=== PATIENT | male | born 1930 | race Caucasian/White ===

== ENCOUNTER 2022-06-27 10:04 | Emergency (ER) | payer OTHER ==
--- NOTE | 2022-06-27 10:12 | ED ---
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 He did strike the back of his head against a counter. He denies any neck pain. He was demonstrating loss of consciousness for approximately 15 seconds per paramedics. Evidence of dysrhythmia on vehicle monitor technician per paramedics. Patient became awake alert oriented 4 and denies any focal deficits. He states some like this happen in the past he had a oblique cardiac workup which apparently was negative including stress test. Last tetanus shot was 4 years ago. Currently the patient has no complaints other than he does have a scalp laceration and some localized tenderness to the occiput. Per paramedics patient had what appeared to be a short run of PVCs with serial capture this resolved shortly and the patient went back to a normal sinus rhythm. MD Complaint: loss of consciousness - Related Data Home Medications Medication Instructions Recorded Confirmed Accupril Unknown Dose 1 tab PO HS 06/27/22 06/27/22 Aspirin EC [Ecotrin Low Dose] 81 mg PO DAILY 06/27/22 06/27/22 Cholecalciferol [Vitamin D3 (25 25 mcg PO DAILY 06/27/22 06/27/22 Mcg = 1000 Iu)] Crestor Unknown Dose 1 tab PO DAILY 06/27/22 06/27/22 Cyanocobalamin (Vitamin B-12) 1,000 mcg PO DAILY 06/27/22 06/27/22 [Vitamin B-12] Glipizide Unknown Dose 1 tab PO BID 06/27/22 06/27/22 Invokana Unknown Dose 1 tab PO DAILY 06/27/22 06/27/22 Ozempic Unknown Dose 1 dose SQ FR 06/27/22 06/27/22 Allergies Allergy/AdvReac Type Severity Reaction Status Date / Time No Known Allergies Allergy Verified 06/27/22 11:31 Review of Systems ROS Statement: Those systems with pertinent positive or pertinent negative responses have been documented in the HPI. ROS Other: All systems not noted in ROS Statement are negative. General Exam - General Exam Comments Initial Comments: This is a well-developed well-nourished awake alert oriented 4 male [place] Coma Scale of 15 General appearance: alert, in no apparent distress Head exam: Present: normocephalic, normal inspection, other (Scalp laceration noted to the occipital region no step-off or crepitation) Eye exam: Present: normal appearance, PERRL, EOMI. Absent: scleral icterus, conjunctival injection, periorbital swelling ENT exam: Present: normal exam, mucous membranes moist Neck exam: Present: normal inspection, other (Cervical collar in place no overt tenderness palpation). Absent: tenderness, meningismus, lymphadenopathy Respiratory exam: Present: normal lung sounds bilaterally. Absent: respiratory distress, wheezes, rales, rhonchi, stridor Cardiovascular Exam: Present: regular rate, normal rhythm, normal heart sounds. Absent: systolic murmur, diastolic murmur, rubs, gallop, clicks GI/Abdominal exam: Present: soft, normal bowel sounds. Absent: distended, tenderness, guarding, rebound, rigid Extremities exam: Present: normal inspection, full ROM, normal capillary refill. Absent: tenderness, pedal edema, joint swelling, calf tenderness Back exam: Present: normal inspection Neurological exam: Present: alert, oriented X3, CN II-XII intact Psychiatric exam: Present: normal affect, normal mood Skin exam: Present: warm, dry, intact, normal color. Absent: rash Course Vital Signs 06/27/22 10:07 Temperature 97.7 F Pulse Rate 106 H Respiratory 16 Rate Blood Pressure 151/92 O2 Sat by Pulse 96 Oximetry - Reevaluation(s) Reevaluation #1: 06/27/22 13:55 I did reevaluate patient several occasions no further episodes. Patient daughter is present. Did explain the procedure for evaluation to her. EKG Findings - EKG Results: EKG: interpreted by ERMD, sinus rhythm (Sinus tachycardia rate 103. Interval 185 QRS duration 141 QT/QTC 379/439> block pattern) Procedures - Laceration Laceration #1 Consent Obtained: verbal consent Site: scalp Description: flap Depth: simple, single layer Anesthetic Used: lidocaine 1% Amount (mls): 5 Pre-repair: wound explored, deep structures intact Size of Sutures: other (A total 13 surgical ramos used to approximate the edges to the 10 cm long reverse L-shaped laceration a dressing was applied afterwards) Patient Tolerated Procedure: well Medical Decision Making - Medical Decision Making I did a long discussion with the patient family regarding the findings I did recommend admission to this facility the patient is from [place] and does not want to be admitted here. The patient will be discharged with copies of the proceedings from this emergency department as well as the EMS run I did recommend he follow-up with emergency department in [place] where he is going. We did discuss return parameters. Patient is wanting to except responsibility. He's had no further episodes while in emergency department. A cardiac event is of concern. CT was negative for evidence of pulmonary emboli. - Lab Data Result diagrams: 06/27/22 10:25 06/27/22 10:25 Lab Results 06/27/22 06/27/22 06/27/22 Range/Units 10:25 10:25 10:25 WBC 8.3 (3.8-10.6) k/uL RBC 4.59 (4.30-5.90) m/uL Hgb 14.0 (13.0-17.5) gm/dL Hct 43.2 (39.0-53.0) % MCV 94.0 (80.0-100.0) fL MCH 30.4 (25.0-35.0) pg MCHC 32.3 (31.0-37.0) g/dL RDW 12.2 (11.5-15.5) % Plt Count 249 (150-450) k/uL MPV 7.2 Neutrophils % 68 % Lymphocytes % 18 % Monocytes % 7 % Eosinophils % 3 % Basophils % 1 % Neutrophils # 5.7 (1.3-7.7) k/uL Lymphocytes # 1.5 (1.0-4.8) k/uL Monocytes # 0.6 (0-1.0) k/uL Eosinophils # 0.2 (0-0.7) k/uL Basophils # 0.1 (0-0.2) k/uL PT 10.8 (9.0-12.0) sec INR 1.0 (<1.2) APTT 23.9 (22.0-30.0) sec D-Dimer 2.93 H (<0.60) mg/L FEU Sodium 138 (137-145) mmol/L Potassium 4.0 (3.5-5.1) mmol/L Chloride 106 (98-107) mmol/L Carbon Dioxide 19 L (22-30) mmol/L Anion Gap 13 mmol/L BUN 27 H (9-20) mg/dL Creatinine 1.02 (0.66-1.25) mg/dL Est GFR (CKD-EPI)AfAm 75 (>60 ml/min/1.73 sqM) Est GFR (CKD-EPI)NonAf 65 (>60 ml/min/1.73 sqM) Glucose 168 H (74-99) mg/dL Calcium 8.8 (8.4-10.2) mg/dL Magnesium 1.8 (1.6-2.3) mg/dL Total Bilirubin 0.4 (0.2-1.3) mg/dL AST 30 (17-59) U/L ALT 25 (4-49) U/L Alkaline Phosphatase 98 (38-126) U/L Troponin I (0.000-0.034) ng/mL Total Protein 6.0 L (6.3-8.2) g/dL Albumin 3.7 (3.5-5.0) g/dL 06/27/22 Range/Units 10:25 WBC (3.8-10.6) k/uL RBC (4.30-5.90) m/uL Hgb (13.0-17.5) gm/dL Hct (39.0-53.0) % MCV (80.0-100.0) fL MCH (25.0-35.0) pg MCHC (31.0-37.0) g/dL RDW (11.5-15.5) % Plt Count (150-450) k/uL MPV Neutrophils % % Lymphocytes % % Monocytes % % Eosinophils % % Basophils % % Neutrophils # (1.3-7.7) k/uL Lymphocytes # (1.0-4.8) k/uL Monocytes # (0-1.0) k/uL Eosinophils # (0-0.7) k/uL Basophils # (0-0.2) k/uL PT (9.0-12.0) sec INR (<1.2) APTT (22.0-30.0) sec D-Dimer (<0.60) mg/L FEU Sodium (137-145) mmol/L Potassium (3.5-5.1) mmol/L Chloride (98-107) mmol/L Carbon Dioxide (22-30) mmol/L Anion Gap mmol/L BUN (9-20) mg/dL Creatinine (0.66-1.25) mg/dL Est GFR (CKD-EPI)AfAm (>60 ml/min/1.73 sqM) Est GFR (CKD-EPI)NonAf (>60 ml/min/1.73 sqM) Glucose (74-99) mg/dL Calcium (8.4-10.2) mg/dL Magnesium (1.6-2.3) mg/dL Total Bilirubin (0.2-1.3) mg/dL AST (17-59) U/L ALT (4-49) U/L Alkaline Phosphatase (38-126) U/L Troponin I <0.012 (0.000-0.034) ng/mL Total Protein (6.3-8.2) g/dL Albumin (3.5-5.0) g/dL - Radiology Data Radiology results: report reviewed (CT reviewed no evidence of fractures or cranial problems. Chest x-ray no acute findings seen.), image reviewed Critical Care Time Critical Care Time: Yes Total Critical Care Time: 39 Critical Care Time: Critical care time includes initial presentation with history physical labs x- rays discussed with paramedics upon arrival was low reevaluation the patient discussed with the patient family this is not included the laceration repair ti me. Documentation of the above Disposition Clinical Impression: Syncope, Cardiac dysrhythmia, unspecified, Occipital scalp laceration Disposition: Left Against Medical Advice Condition: Stable Instructions (If sedation given, give patient instructions): Syncope (ED), Laceration (ED), Head Laceration (ED), Staple Care (ED) Is patient prescribed a controlled substance at d/c from ED?: No Referrals: None,Stated [Primary Care Provider] - 1-2 days Decision Date: 06/27/22 Decision Time: 14:00
[2022-06-27 10:14] VITALS: BP 151/92; PULSE 106; RESP 16; TEMP 97.7
[2022-06-27 10:34] LABS: Basophils # (A) 0.1 k/uL (0-0.2); Basophils % (A) 1 %; Eosinophils # (A) 0.2 k/uL (0-0.7); Eosinophils % (A) 3 %; HCT 43.2 % (39.0-53.0); Lymphocytes # (A) 1.5 k/uL (1.0-4.8); Lymphocytes % (A) 18 %; MCH 30.4 pg (25.0-35.0); MCHC 32.3 g/dL (31.0-37.0); Mean Platelet Volume 7.2; Monocytes # (A) 0.6 k/uL (0-1.0); Monocytes % (A) 7 %; Neutrophils # (A) 5.7 k/uL (1.3-7.7); Neutrophils % (A) 68 %; Platelet Count 249 k/uL (150-450); RBC 4.59 m/uL (4.30-5.90); RDW 12.2 % (11.5-15.5); WBC 8.3 k/uL (3.8-10.6)
[2022-06-27 11:05] LABS: Partial Thromboplastin Time 23.9 sec (22.0-30.0); Prothrombin Time 10.8 sec (9.0-12.0)
[2022-06-27 11:11] LABS: Albumin 3.7 g/dL (3.5-5.0); Calcium 8.8 mg/dL (8.4-10.2); Magnesium 1.8 mg/dL (1.6-2.3); Total Bilirubin 0.4 mg/dL (0.2-1.3)
--- NOTE | 2022-06-27 11:21 | CT ---
EXAMINATION TYPE: CT brain ayanna gomez con DATE OF EXAM: 06/27/2022 COMPARISON: None HISTORY: syncope, fell hitting head CT DLP: 1543.2 mGycm Automated exposure control for dose reduction was used. TECHNIQUE: CT scan of the head and cervical spine are performed without contrast. FINDINGS: CT BRAIN NONCONTRAST: Exam is limited particularly along the skull base and posterior margins for hem orrhage due to artifact. Grossly the ventricular system is midline without displacement. Intracranial vascular calcifications are noted. Calcification within the left basal ganglia. Moderate generalized degenerative change nonspecific low attenuation in the white matter most remote white matter ischemi a. There is decreased soft tissue hematoma or laceration along the posterior superior calvarium. Calv arium appears intact. Changes of chronic sinusitis noted. Orbits are intact. Assessment spinal canal limited due to resolution and artifact. Grossly there is multilevel degenerat clare disc disease most marked at C6-C7 with vacuum disc. Multilevel facet arthropathy and anterior hyp ertrophic spurring. Atherosclerotic change aorta.. Atherosclerotic change of the carotid arteries not ed. IMPRESSION: 1. There is no acute fracture or dislocation evident in the cervical spine. Multilevel hypertrophic a nd degenerative change with multilevel facet arthropathy. Suspect multilevel foraminal encroachment r ecommend follow-up MRI. Canal stenosis not excluded. 2. Soft tissue injury compatible a subcutaneous hematoma and laceration posterior superior calvarium. No fracture. 3. No acute intracranial hemorrhage, mass effect, or midline shift is seen. Degenerative change and n onspecific white matter changes most typical of remote ischemia.
--- NOTE | 2022-06-27 12:11 | XR ---
EXAMINATION TYPE: XR chest 2V DATE OF EXAM: 06/27/2022 COMPARISON: None HISTORY: 89-year-old male syncope TECHNIQUE: AP and lateral views FINDINGS: Heart upper limits of normal in size. Atherosclerotic arch calcifications. Large right main pulmonary artery on the lateral view suggesting underlying pulmonary artery hypertension. Mild hyperinflation. Some strandy atelectasis mid and lower lungs. Old healed left-sided rib fracture deformities. Degene rative change AC joints. Loss of the subacromial space on the right suggesting chronic full-thickness rotator cuff tears. DISH throughout the mid and lower thoracic spine. IMPRESSION: 1. COPD with mild emphysema. 2. Suspect underlying pulmonary arterial hypertension. 3. Strandy areas of atelectasis. No definite acute process. 4. Bony changes mentioned above.
--- NOTE | 2022-06-27 12:11 | CT ---
EXAMINATION TYPE: CT angio chest CT DLP: 316.1 mGycm, Automated exposure control for dose reduction was used. DATE OF EXAM: 06/27/2022 12:00 PM COMPARISON: Chest radiograph of the same date. CLINICAL INDICATION:Male, 89 years old with history of PE suspected; Elevated d-dimer TECHNIQUE/CONTRAST: CTA scan of the thorax is performed with IV Contrast, patient injected with 100, wasted 15 ml mL of I sovue 370, pulmonary embolism protocol. MIP images are created and reviewed. FINDINGS: Pulmonary Artery: There is no evidence for a filling defect within the pulmonary vasculature to sugge st acute pulmonary embolism. The pulmonary artery is of normal size. Lungs/Pleura: Posterior dependent subsegmental atelectasis is noted. No focal consolidation, pneumoth orax, or pleural effusion. No concerning pulmonary nodule or mass. Airway: Large airways are patent. Heart: The heart is mildly enlarged for size. No pericardial effusion. Vasculature: No evidence of aortic aneurysm. Atherosclerotic calcification of the aorta. Mediastinum: No gross evidence of adenopathy. Musculoskeletal: Mild degenerative disc disease changes are present throughout the thoracolumbar spin e. No acute osseous abnormality. Soft Tissues: Unremarkable. Lower neck: No significant findings. Upper Abdomen: Small hiatal hernia. IMPRESSION: No evidence of pulmonary embolism or acute thoracic process.
[2022-06-27] MEDS ORDERED: LIDOCAINE 1% PF 10 MG/ML (5 ML AMP) SQ ONE (12:15)
== END 2022-06-27 14:10 | disposition left against medical advice (07) ==
LOC: EDBD → EC 10:04
DX: R55 Syncope and collapse (principal); I49.9 Cardiac arrhythmia, unspecified; S01.01XA Laceration without foreign body of scalp, initial encounter; X58.XXXA Exposure to other specified factors, initial encounter
CPT/HCPCS: 36415; 93005; 85379; 80053; 83735; 84484; 85025; 85610; 85730; 71046; 72125; 70450; 71275; 99285; 12001; J2001; Q9967